=== PATIENT | female | born 1970 | race African-American/Black ===

== ENCOUNTER 2019-09-27 20:46 | Emergency (ER) | payer BC, OTHER ==
[2019-09-27 21:11] VITALS: BP 151/91; PULSE 84; TEMP 98.3; BMI 38.3
[2019-09-27] MEDS ORDERED: FAMOTIDINE 20 MG/50 ML IVPB 20 MG/50 ML MG IVPB ONE ×2 (21:22→22:29)
[2019-09-27] MEDS ORDERED: morphine CARPU-JECT 4 MG/1 ML DISP.SYRIN IVPUSH ONE (21:22)
[2019-09-27] MEDS ORDERED: SODIUM CHLORIDE 1,000 ML IV STA (21:22)
[2019-09-27] MEDS ORDERED: ONDANSETRON 4 MG/2 ML VIAL IVPUSH ONE (21:23)
--- NOTE | 2019-09-27 21:26 | PDOC ---
History of Present Illness - General Chief Complaint: Diarrhea Stated Complaint: DIARRHEA & ABD PAIN Time Seen by Provider: 09/27/19 20:54 History Source: Patient Exam Limitations: No Limitations - History of Present Illness Initial Comments: 09/27/19 21:24 HPI 49 YOF with h/o RA, bipolar d/o, HTN, multiple abdominal surgeries including appendectomy, cholecystectomy, gastric bypass, SBOs x 3 requiring surgical decompression, presenting with acute onset of diffuse abdominal pain x 2 hours, beginning approx 7pm, a/w nausea and one episode of nonbloody diarrhea she ate [place]an food prior to onset of sx of note, she returned from a vacation trip to [place] on 09/21/2019, denies illlness there or food poisoning. Denies fever, chills, chest pain, SOB, palpitation, dizziness, weakness, N, V, D, abdominal pain, bladder and bowel problems, focal weakness/paresthesias, leg swelling/pain, rash. No sick contacts or travel. No new changes in medications. +suspicious food intake Allergies: dilaudid and reglan Past Medical History: RA, bipolar d/o, HTN PSH: multiple abdominal surgeries including appendectomy, cholecystectomy, gastric bypass, SBOs x 3 requiring surgical decompression, rotator cuff, knee surgery Social history: Lives with family. No tobacco, ETOH or drug use. Meds: as documented in EMR Review of systems Constitutional: no fevers or chills. No weakness HEENT: no headache or dizziness. No congestion. No visual/hearing disturbances. CVS: no cp or syncope. Resp: no sob. No cough. Gastrointestinal: +abdominal pain, nausea, vomiting, diarrhea. Genitourinary: no urgency or dysuria, hematuria. +urinary frequency. MUSCULOSKELETAL: No joint pain and swelling. No neck or back pain. SKIN: no redness or skin changes, no discharge, no rash. No wounds. Hematologic: no easy bruising/bleeding. NEUROLOGIC: No headache, dizziness, LOC or altered mental status. No weakness, numbness or tingling. Psych: no anxiety or depression Allergic/Immunologic: no allergies All other systems reviewed and negative, or as documented in HPI. Physical exam General: Well appearing, awake and alert, NAD. HEENT: NCAT, PERRL, EOMI, clear conjunctiva, anicteric, moist mucus membranes, clear oropharynx, no oral lesions.. Neck: neck supple, FROM Resp: CTAB, normal and even respirations, no respiratory distress CVS: RRR, no murmurs, 2+ peripheral pulses throughout, no peripheral edema Abdomen: soft, obese, midline vertical surgical scar, +periumbilical and epigastric TTP, no rebound or guarding. no CVAT. Back: nontender, normal inspection and ROM MSK: no edema, PASCUAL x4, ROM intact. No clubbing or cyanosis. normal bulk and tone. Extremities: no calf tenderness Neuro: alert, oriented appropriately; no focal neurologic deficits Psych: Calm and cooperative Skin: warm and well perfused, cap refill <2 sec, normal color, no rash or skin discoloration. 09/27/19 21:24 09/27/19 21:26 09/28/19 00:52 Past History - Past Medical History Allergies/Adverse Reactions: Allergies Allergy/AdvReac Type Severity Reaction Status Date / Time hydromorphone HCl Allergy Verified 09/27/19 21:03 [From Dilaudid] metoclopramide HCl Allergy Verified 09/27/19 21:03 [From Reglan] Home Medications: Ambulatory Orders Abatacept [Orencia] 125 mg SQ WEEKLY 09/27/19 Calcitriol [Rocaltrol] 0.5 mcg PO DAILY 09/27/19 Cholecalciferol (Vitamin D3) [Vitamin D3 -] 1,000 unit PO DAILY 09/27/19 Divalproex [Depakote -] 1,500 mg PO DAILY 09/27/19 Eszopiclone [Lunesta] 3 mg PO HS 09/27/19 Lisinopril 20 mg PO DAILY 09/27/19 Pantoprazole Sodium [Protonix] 40 mg PO DAILY 09/27/19 Rosuvastatin [Crestor -] 10 mg PO DAILY 09/27/19 Cephalexin Monohydrate [Keflex -] 500 mg PO BID 5 Days #10 capsule 09/28/19 Mag Hydrox/Al Hydrox/Simeth [Mylanta Suspension -] 30 ml PO Q6H PRN #1 bottle 09/28/19 Ondansetron [Zofran *Odt*] 4 mg SL TID PRN #9 od.tablet 09/28/19 COPD: No GI Disorders: Yes (3 BOWEL OBSTRUCTIONS) HTN: Yes Psychiatric Problems: Yes (BIPOLAR) - Surgical History Abdominal Surgery: Yes (gastric bypass) Appendectomy: Yes Cholecystectomy: Yes (1997) - Psycho Social/Smoking Cessation Hx Smoking Status: No Smoking History: Never smoked Have you smoked in the past 12 months: No Number of Cigarettes Smoked Daily: 0 Information on smoking cessation initiated: No Hx Alcohol Use: No Drug/Substance Use Hx: No Substance Use Type: None *Physical Exam - Vital Signs Last Vital Signs Temp Pulse Resp BP Pulse Ox 98.3 F 84 18 151/91 100 09/27/19 21:06 09/27/19 21:06 09/27/19 21:06 09/27/19 21:06 09/27/19 21:06 ED Treatment Course - LABORATORY CBC & Chemistry Diagram: 09/27/19 22:25 09/27/19 22:25 - RADIOLOGY Radiology Studies Ordered: Category Date Time Status ABDOMEN & PELVIS CT WITH CONTR [CT] Stat CT Scan 09/27/19 21:23 Ordered Medical Decision Making - Medical Decision Making 09/27/19 22:54 Vital Signs Temp Pulse Resp BP Pulse Ox 98.3 F 84 18 151/91 100 09/27/19 21:06 09/27/19 21:06 09/27/19 21:06 09/27/19 21:06 09/27/19 21:06 Assessment and plan: 49-year-old female with prior abdominal surgeries and SBO, presenting with diffuse abdominal pain associated with nausea and diarrhea [employer] There is suspicious food intake. However patient does have risk factors for SBO DDx abdominal pain: Renal colic, biliary colic, metabolic/electrolyte derangements. GERD, PUD, esophageal spasm, pancreatitis, hepatitis, constipation, colitis, gastroenteritis, cholecystitis, UTI, pyelonephritis, ileus, SBO, medication side effect, hernia, appendicitis, diverticulitis, mesenteric ischemia. msk strain, mesenteric adenitis, psoas abscess. given PO contrast given h/o bowel altering surgeries analgesia with morphine, no reaction has h/o allergy to dilaudid (itching) zofran for nausea IVF Laboratory results with chronic anemia, no acute changes. No evidence of bleeding. Electrolytes and lipase are normal. Lactic is also normal reassuring less likely to be ischemic process. Patient does not appear septic. Urinalysis with prelim findings of infection with 1+ leuk esterase and WBCs greater than 10. Negative test CT a/p to eval for obstruction, perf, infection/inflammation. 09/27/19 23:23 CT negative for acute abdominal pathology, no evidence of perforation or obstruction. There is an incidental adrenal adenoma, follow-up as an outpatient and patient made aware of incidental findings. There is postsurgical changes including her gastric sleeve/appendectomy/cholecystectomy. On clinical reevaluation patient is feeling much improved, she is able to tolerate p.o. intake. Acute pathology noted on CT scan so this is likely gastroenteritis/food poisoning from eating [place] food. She does not appear obstructed. Nontoxic non-peritoneal findings. Given Maalox for additional analgesia for her dyspepsia. Told to avoid potential food triggers Rx Zofran as needed for nausea/vomiting. Keflex for mild UTI, patient does endorse urinary frequency so we will treat, IV ceftriaxone given here, Keflex course for 5 days. Pt to be discharged in stable condition. Patient and family made aware of clinical impression, treatment recommendations and disposition plan, return precautions discussed (including but not limited to new or persistent/worsening symptoms, pain, fevers, or signs of infection, chest pain, respiratory distress, inability to tolerate oral intake, dehydration, syncope, or neurologic changes). Follow up with PMD and/or specialist as recommended, follow up information provided, take medications as instructed for duration of time. continue with supportive care, avoid triggers and precipitants. All questions answered to patient's satisfaction and expressed understanding and comfort with this. At the time of discharge, the patient is alert, clinically improved, tolerating po and verbalizes understanding of instructions, satisfied with the care received and felt comfortable with the plan. Patient does not suffer from an acute life-threatening medical condition at this time and is safe for outpatient follow-up. Discharge - Discharge Information Problems reviewed: Yes Clinical Impression/Diagnosis: Abdominal pain Qualifiers: Abdominal location: generalized Qualified Code(s): R10.84 - Generalized abdominal pain UTI (urinary tract infection) Qualifiers: Urinary tract infection type: site unspecified Hematuria presence: without hematuria Qualified Code(s): N39.0 - Urinary tract infection, site not specified Condition: Good Disposition: HOME - Admission No - Additional Discharge Information Prescriptions: Cephalexin Monohydrate [Keflex -] 500 mg PO BID 5 Days #10 capsule Mag Hydrox/Al Hydrox/Simeth [Mylanta Suspension -] 30 ml PO Q6H PRN #1 bottle PRN Reason: heartburn Ondansetron [Zofran *Odt*] 4 mg SL TID PRN #9 od.tablet PRN Reason: nausea vomiting - Follow up/Referral Referrals: [facility] [place] [facility] [place] [Provider Group] [facility] [Provider Group] - Patient Discharge Instructions Patient Printed Discharge Instructions: How to Avoid Food Poisoning, DI for Food Poisoning, DI for Abdominal Pain-Adult, Gastroenteritis Diet Additional Instructions: 1) Please follow-up with your primary care doctor in the next 1-2 days. Please call tomorrow for for any urgent issues. 2) You were given a copy of the tests performed today. Please bring the results with you and review them with your primary care doctor. Your laboratory / imaging results were normal, _including your CT scan which is negative for obstruction or intra-abdominal pathology/infection/inflammation. There is an incidental adrenal adenoma/growth above your kidneys this needs to be followed up as an outpatient. 3) If you have any worsening of symptoms or any other concerns please return to the ED immediately. Return if worsening symptoms including fevers, headache, vomiting, visual or hearing disturbances, abdominal pain, chest pain, shortness of breath, syncope, dehydration, inability to take things by mouth/vomiting, altered mental status, or worsening concerning symptoms. 4) Please continue taking your home medications as directed. your medications on discharge include_Zofran 3 times a day as needed for nausea/vomiting, Maalox and or Mylanta [id number] to help with dyspepsia, Keflex 2 times a day for 5 days for mild UTI or urinary tract infection. side effects may include upset stomach, abdominal pain, vomiting, or diarrhea. do not drink alcohol with your medications. Stay well hydrated and rest adequately. Avoid any food triggers or precipitating factors contributing to your symptoms. Make an appointment. If you cannot follow-up with your primary care doctor please return to the ED - Post Discharge Activity
[2019-09-27 22:09] LABS: EPITHELIAL CELLS FEW /hpf
[2019-09-27] MEDS ORDERED: morphine SULFATE 4 MG/ML VIAL ONE ×2 (22:30→23:16)
[2019-09-27] MEDS ORDERED: ONDANSETRON 4 MG/2 ML VIAL ONE (22:30)
[2019-09-27 22:42] LABS: BASO % 1.5 % (0-2.0); EOS % 0.4 % (0-4.5); HEMOGLOBIN 10.1 GM/dl (10.7-15.3); LYMPH % 23.1 % (8-40); MCH 25.5 pg (25.7-33.7); MCHC 31.4 g/dl (32.0-36.0); MEAN CELL VOLUME 81.2 fl (80-96); MEAN PLT VOLUME 8.6 fl (7.5-11.1); MONO % 3.7 % (3.8-10.2); NEUT % 71.3 % (42.8-82.8); PLATELET COUNT 356 K/MM3 (134-434); RBC 3.95 M/mm3 (3.60-5.2); RDW 15.3 % (11.6-15.6); WHITE BLOOD COUNT 6.3 K/mm3 (4.0-10.8)
[2019-09-27 22:50] LABS: ALBUMIN 3.3 g/dl (3.4-5.0); BILIRUBIN,TOTAL 0.7 mg/dl (0.2-1); CALCIUM 8.8 mg/dl (8.5-10); CREATININE 0.8 mg/dl (0.55-1.3); POTASSIUM 4.7 mmol/L (3.5-5.1); TOT PROT 6.8 g/dl (6.4-8.2)
[2019-09-27] MEDS ORDERED: morphine SULFATE 4 MG/ML VIAL IVPUSH ONE (23:15)
[2019-09-28] MEDS ORDERED: CEFTRIAXONE 1,000 MG in DEXTROSE 5%-WATER - 50 ML IVPB ONE (00:01)
[2019-09-28] MEDS ORDERED: cefTRIAXone SODIUM 1 GM VIAL ONE (00:04)
[2019-09-28] MEDS ORDERED: MAG HYDROX/AL HYDROX/SIMETH 30 ML UNIT-DOSE CUP PO ONE (00:49)
[2019-09-28] MEDS ORDERED: MAG HYDROX/AL HYDROX/SIMETH 30 ML UNIT-DOSE CUP ONE (00:51)
--- NOTE | 2019-09-28 11:02 | EKG ---
Test Reason : Blood Pressure : / mmHG Vent. Rate : 081 BPM Atrial Rate : 081 BPM P-R Int : 164 ms QRS Dur : 086 ms QT Int : 398 ms P-R-T Axes : 047 011 027 degrees QTc Int : 462 ms NORMAL SINUS RHYTHM NONSPECIFIC T WAVE ABNORMALITY PROLONGED QT ABNORMAL ECG WHEN COMPARED WITH ECG OF 03-JUN-2010 21:59, PREMATURE VENTRICULAR COMPLEXES ARE NO LONGER PRESENT Confirmed by Binh Hsu MD ([id number]) on 09/28/2019 11:02:21 AM Referred By: NEGIN HOPKINS Confirmed By:Binh Hsu MD
== END 2019-09-28 01:02 | disposition home or self-care (01) ==
LOC: FER 20:46
PROC: 3E03329 Introduction of Other Anti-infective into Peripheral Vein, Percutaneous Approach (ICD-10-PCS; principal; 2019-09-27)
PROC: 3E033GC Introduction of Other Therapeutic Substance into Peripheral Vein, Percutaneous Approach (ICD-10-PCS; 2019-09-27)
PROC: 3E033NZ Introduction of Analgesics, Hypnotics, Sedatives into Peripheral Vein, Percutaneous Approach (ICD-10-PCS; 2019-09-27)
PROC: 3E0337Z Introduction of Electrolytic and Water Balance Substance into Peripheral Vein, Percutaneous Approach (ICD-10-PCS; 2019-09-27)
DX: R10.84 Generalized abdominal pain (principal); N39.0 Urinary tract infection, site not specified; Z88.8 Allergy status to other drugs, medicaments and biological substances
CPT/HCPCS: 36415; 74177-TC; 80053; 81003; 81015; 83605; 83690; 84703; 85025; 87086; 93005; 99285-25; J7030; Q9967

== ENCOUNTER 2021-10-13 09:58 | Emergency (ER) | payer OTHER ==
[2021-10-13 10:09] VITALS: BP 125/80; PULSE 80; TEMP 98.1; BMI 43.0
[2021-10-13] MEDS ORDERED: oxyCODONE HCL 5 MG TABLET PO ONE (10:51)
[2021-10-13] MEDS ORDERED: oxyCODONE HCL 5 MG TABLET ONE (11:18)
== END 2021-10-13 14:35 | disposition home or self-care (01) ==
LOC: JER 09:58
DX: M25.561 Pain in right knee (principal)
CPT/HCPCS: 73560-TC-RT-FY; 93971-TC; 99284-25